=== PATIENT | male | born 1980 | race Caucasian/White ===

== ENCOUNTER 2023-08-07 19:00 | Emergency (ER) | payer SELFPAY ==
[~2023-08-07] VITALS: Ht 167.6 cm; Wt 77.0 kg
[2023-08-07 19:09] VITALS: O2SAT 100
[2023-08-07 20:08] LABS: BASOPHILS % 0.4 % (0.0-2.0); EOSINOPHILS % 2.2 % (0.0-5.0); HEMATOCRIT. 36.7 % (42.0-52.0); HEMOGLOBIN. 12.4 g/dL (14.0-18.0); LYMPHOCYTES % 7.6 % (20.0-50.0); MEAN CORPUSCULAR HEMOGLOBIN 29.2 pg (28.0-32.0); MEAN CORPUSCULAR HGB CONC 33.8 g/dL (31.0-37.0); MEAN CORPUSCULAR VOLUME 86.3 fL (80.0-94.0); MEAN PLATELET VOLUME 9.8 fl (7.4-10.4); MONOCYTES % 6.9 % (2.0-8.0); NEUTROPHILS % 82.9 % (40.0-76.0); PLATELET 171 x1000/uL (130-400); RED BLOOD CELL COUNT 4.25 mill/uL (4.7-6.1); WHITE BLOOD COUNT 10.4 x1000/uL (4.5-11.0)
[2023-08-07 20:09] LABS: CHLORIDE 109 mEq/L (98-107); POTASSIUM 3.4 mEq/L (3.5-5.1); SODIUM 141 mEq/L (136-145)
[2023-08-07 20:10] LABS: CALCIUM 8.9 mg/dL (8.7-10.4); CARBON DIOXIDE 25 mEq/L (21-32)
[2023-08-07 20:12] LABS: PROTHROMBIN TIME 10.9 sec (9.6-11.0)
[2023-08-07 20:15] LABS: GLUCOSE 84 mg/dL (70-105); UREA NITROGEN BLOOD 13 mg/dL (9-23)
[2023-08-07 20:16] LABS: TROPONIN I HIGH SENSITIVITY 5 ng/L (3.0-53)
[2023-08-07] MEDS: SODIUM CHLORIDE 0.9% 1,000 ML IV ONE (20:44)
[2023-08-07] MEDS: POTASSIUM CHLORIDE 20MEQ TABLET SR PO ONE (20:51)
[2023-08-07 21:53] VITALS: BP 121/72; PULSE 71; RESP 14; TEMP 98.7
== END 2023-08-07 21:59 | disposition home or self-care (01) ==
LOC: ER 19:00
DX: R55 Syncope and collapse (principal); E86.0 Dehydration; E87.6 Hypokalemia
CPT/HCPCS: 99285; 96360; 71045; 80048; 85025; 85610; 84484; 36415; 93005; J7030